=== PATIENT | female | born 1985 | race African-American/Black ===

== ENCOUNTER 2020-03-28 01:55 | Emergency (ER) | payer OTHER, SELFPAY ==
[2020-03-28 02:00] VITALS: BP 156/100; PULSE 100; RESP 20; TEMP 36.8; O2SAT 100
--- NOTE | 2020-03-28 02:18 | ED.SKABFB ---
HPI - Skin/Abscess/Foreign Bdy General Chief complaint: Skin/Abscess/Foreign Body Stated complaint: spider bite Time Seen by Provider: 03/28/20 02:05 Source: patient Mode of arrival: ambulatory Limitations: no limitations History of Present Illness HPI narrative: This patient is a 35 year old female who presents for evaluation of a spider bite. Patient states that she felt something crawl and bite her on her left buttock. When she shook her clothes, she found a spider and she killed it. She states initially she has some itching at bite site but that has resolved. She denies any pain or redness. Related Data Home Medications Medication Instructions Recorded Confirmed No Home Medications 03/28/20 03/28/20 Allergies Allergy/AdvReac Type Severity Reaction Status Date / Time iodine Allergy Swelling Verified 03/28/20 02:03 Review of Systems Review of Systems: All systems reviewed & are unremarkable except as noted in HPI and below PMFSH Past Medical History Medical History (Updated 03/28/20 @ 02:24 by Miriam Hyman MD) Patient denies medical problems Surgical History Surgical History (Updated 03/28/20 @ 02:18 by Miriam Hyman MD) No significant past surgical history Exam Const: General: no acute distress and alert Orientation/consciousness: patient oriented x3 HENMT: Head: normocephalic and atraumatic Eyes: EOM: EOMs intact bilaterally Resp: Effort & Inspection: normal respiratory effort Skin: General skin exam: normal color Rashes: no rashes Other: on left side hip small raised area, no erythema, no puncture wound, no tenderness. Neuro: General: patient oriented x3 and moves all extremities Extrem: General: no pedal edema Course Reevaluation(s) Reevaluation #1: I have discussed with patient that there is no prophylaxis for spider bite. She is unsure of her last tetanus so will make this up to date. Date: 03/28/20 Time: 02:21 Vital Signs Vital signs: Vital Signs Temperature 98.2 F 03/28/20 02:00 Pulse Rate 100 03/28/20 02:00 Respiratory Rate 20 03/28/20 02:00 Blood Pressure 156/100 H 03/28/20 02:00 Pulse Oximetry 100 03/28/20 02:00 Temperature 98.2 F 03/28/20 02:00 Pulse Rate 100 03/28/20 02:00 Respiratory Rate 20 03/28/20 02:00 Blood Pressure 156/100 H 03/28/20 02:00 Pulse Oximetry 100 03/28/20 02:00 Discharge Plan Discharge Clinical Impression: Spider bite Qualifiers: Encounter type: initial encounter Injury intent: accidental or unintentional Qualified Code(s): T63.301A - Toxic effect of unspecified spider venom, accidental (unintentional), initial encounter Patient Disposition: Home, Self-Care Condition: Stable Instructions: Insect Bite or Sting (ED), Brown Recluse Spider Bite (ED), Black Spider Bite (ED) Additional Instructions: It is unclear what type of spider bite bit you. Watch for signs of infection such as fever, vomiting, weakness , skin discoloration. Prescriptions: No Action No Home Medications RF: 0 Follow-up/Referrals: PHYSICIAN,LINE WORKER [Primary Care Provider] - Alfredo uLis MD [Physician] - Discharge Date/Time: 03/28/20 02:45
[2020-03-28] MEDS: TETANUS,DIPHTHERIA,AC PERTUSSIS ADULT (0.5 ML) BOOSTRIX IM (02:40)
== END 2020-03-28 02:45 | disposition home or self-care (01) ==
PROVIDERS: Emergency Provider General Practice
DX: T63.301A Toxic effect of unspecified spider venom, accidental (unintentional), initial encounter (principal); Z23 Encounter for immunization
CPT/HCPCS: 90471; 90715; 99282